=== PATIENT | male | born 1975 | race Hispanic/Latino ===

== ENCOUNTER 2017-09-24 15:55 | Emergency (ER) | payer SELFPAY ==
[2017-09-24] MEDS ORDERED: BUPIVACAINE 0.5% PF 10 ML VIAL ONE (17:54)
--- NOTE | 2017-09-24 18:38 | EDPHYS ---
Physician Documentation [facility] Name: Marcellus Branham Age: 42 yrs Sex: Male : 1975 Arrival Date: 09/24/2017 Time: 15:58 Bed 18 Private MD: None, None ED Physician Dank Stubbs HPI: 09/24 17:00 This 42 yrs old Male presents to ER via Ambulatory with complaints of Abscess. cp 17:00 The patient presents to the emergency department with hemorrhoid. cp 17:00 Onset: The symptoms/episode began/occurred 1 week(s) ago. cp 17:00 Associate signs and symptoms: Pertinent negatives: abdominal pain, constipation, cp diarrhea, fever, lower GI bleeding. 17:00 The patient has not experienced similar symptoms in the past. cp Historical: - Allergies: 16:04 No Known Allergies; hb - Immunization history:: Adult Immunizations up to date. - Social history:: Smoking status: Patient/guardian denies using tobacco. - Ebola Screening: : No symptoms or risks identified at this time. ROS: 17:10 Constitutional: Negative for body aches, chills, fever, poor PO intake. cp 17:10 Eyes: Negative for injury, pain, redness, and discharge. cp 17:10 Cardiovascular: Negative for chest pain, edema, palpitations. 17:10 Respiratory: Negative for cough, shortness of breath, wheezing. 17:10 Abdomen/GI: Negative for abdominal pain, nausea, vomiting, and diarrhea, constipation, black/tarry stool, rectal bleeding. 17:10 : Positive for hemorrhoid, Negative for urinary symptoms, flank pain. 17:10 Neuro: Negative for altered mental status, headache, weakness. 17:10 All other systems are negative. Exam: 17:18 Constitutional: The patient appears in no acute distress, alert, awake, comfortable, cp non-toxic, well developed, well nourished. 17:18 Head/Face: Normocephalic, atraumatic. cp 17:18 Eyes: Periorbital structures: appear normal, Conjunctiva: normal, no exudate, no cp injection, Sclera: no appreciated abnormality, Lids and lashes: appear normal, bilaterally. 17:18 ENT: External ear(s): are unremarkable, Nose: is normal, Mouth: is normal, Posterior pharynx: is normal, airway is patent, no erythema, no exudate. 17:18 Chest/axilla: Inspection: normal, Palpation: is normal, no crepitus, no tenderness. 17:18 Cardiovascular: Rate: tachycardic, Rhythm: regular. 17:18 Respiratory: the patient does not display signs of respiratory distress, Respirations: normal, no use of accessory muscles, no retractions, no splinting, no tachypnea, labored breathing, is not present, Breath sounds: are clear throughout. 17:18 Abdomen/GI: Inspection: abdomen appears normal, Bowel sounds: active, all quadrants, cp Palpation: abdomen is soft and non-tender, in all quadrants, rebound tenderness, is not appreciated, voluntary guarding, is not appreciated, involuntary guarding, is not appreciated. 17:18 Back: pain, is absent, ROM is normal. 17:18 : Rectal exam: Rectal tone: normal, Perineal sensation Normal hemorrhoid(s), external, thrombosed. 17:18 Skin: cellulitis, is not appreciated, no rash present. Vital Signs: 16:03 BP 152 / 108; Pulse 105; Resp 18; Temp 98.8; Pulse Ox 100% on R/A; Weight 88.45 kg; hb Height 5 ft. 10 in. (177.80 cm); Pain 3/10; 18:12 BP 144 / 95; Pulse 80; Resp 18; Pulse Ox 99% on R/A; Pain 3/10; em 19:04 BP 138 / 92; Pulse 81; Resp 16; Pulse Ox 98% on R/A; em 16:03 Body Mass Index 27.98 (88.45 kg, 177.80 cm) hb Procedures: 18:30 I \T\ D: Incision and drainage was performed for an abscess of the right external cp hemorrhoid Prepped with Betadine, Anesthetized with 3 ccs of 50/50 mixture of 1% lidocaine with epi and 0.5% marcaine. Incised with #11 blade. Drained bloody fluid. Packed with iodoform gauze, Dressing: sterile 4x4 gauze, the patient tolerated the procedure well. MDM: 16:08 Patient medically screened. cp 17:30 Differential diagnosis: hemorrhoids, fissure, abscess, pilonidal cyst. cp 18:35 Data reviewed: vital signs, nurses notes, and as a result, I will discharge patient. cp 18:35 Counseling: I had a detailed discussion with the patient and/or guardian regarding: the cp historical points, exam findings, and any diagnostic results supporting the discharge/admit diagnosis, the need for outpatient follow up, a general surgeon, to return to the emergency department if symptoms worsen or persist or if there are any questions or concerns that arise at home. 18:35 Response to treatment: the patient's symptoms have markedly improved after treatment, cp and as a result, I will discharge patient. 09/24 17:36 Order name: I\T\D Setup; Complete Time: 17:47 cp Administered Medications: No medications were administered Disposition: 09/25 09:06 Co-signature as Attending Physician, Dank Stubbs MD I agree with the assessment and [facility] plan of care. Disposition: 09/24/17 18:37 Discharged to Home. Impression: Hemorrhoids and perianal venous thrombosis. - Condition is Stable. - Discharge Instructions: Hemorrhoids, Sitz Bath. - Prescriptions for Colace 100 mg Oral Tablet - take 1 tablet by ORAL route every 12 hours; 14 tablet. Tramadol 50 mg Oral Tablet - take 1 tablet by ORAL route every 8 hours as needed; 12 tablet. - Medication Reconciliation Form, Thank You Letter, Antibiotic Education, Prescription Opioid Use form. - Follow up: Aj Yang MD; When: 1 - 2 days; Reason: Recheck today's complaints. - Problem is new. - Symptoms have improved. Signatures: Dank Stubbs MD MD cha Munoz, Edgar, SOLUTION DEVELOPER SOLUTION DEVELOPER em Dank James PA PA cp Baxter, Heather, DICK RN Corrections: (The following items were deleted from the chart) 09/24 19:05 18:37 09/24/2017 18:37 Discharged to Home. Impression: Hemorrhoids and perianal venous em thrombosis. Condition is Stable. Forms are Medication Reconciliation Form, Thank You Letter, Antibiotic Education, Prescription Opioid Use. Follow up: Aj Yang; When: 1 - 2 days; Reason: Recheck today's complaints. Problem is new. Symptoms have improved. cp
--- NOTE | 2017-09-24 18:38 | ER ---
Nurse's Notes [facility] Name: Marcellus Branham Age: 42 yrs Sex: Male : 1975 Arrival Date: 09/24/2017 Time: 15:58 Bed 18 Private MD: None, None Diagnosis: Hemorrhoids and perianal venous thrombosis Presentation: 09/24 16:02 Presenting complaint: Patient states: Painful abscess on buttock x 2 weeks. Transition hb of care: patient was not received from another setting of care. Onset of symptoms is unknown. Risk Assessment: Do you want to hurt yourself or someone else? Patient reports no desire to harm self or others. Initial Sepsis Screen: Does the patient meet any 2 criteria? No. Patient's initial sepsis screen is negative. Does the patient have a suspected source of infection? No. Patient's initial sepsis screen is negative. Care prior to arrival: None. 16:02 Method Of Arrival: Ambulatory hb 16:02 Acuity: CAROLYN 3 hb Historical: - Allergies: 16:04 No Known Allergies; hb - Immunization history:: Adult Immunizations up to date. - Social history:: Smoking status: Patient/guardian denies using tobacco. - Ebola Screening: : No symptoms or risks identified at this time. Screenin:02 Abuse screen: Denies threats or abuse. Nutritional screening: No deficits noted. em Tuberculosis screening: No symptoms or risk factors identified. Fall Risk None identified. Assessment: 16:20 General: Appears in no apparent distress. comfortable, Behavior is calm, cooperative, em Reports abscess near rectum for 2 weeks, hurts when wiping. Pain: Complains of pain in rectum. Neuro: Level of Consciousness is awake, alert, obeys commands, Oriented to person, place, time, situation. Cardiovascular: Capillary refill < 3 seconds Patient's skin is warm and dry. Respiratory: Airway is patent Respiratory effort is even, unlabored, Respiratory pattern is regular, symmetrical. Derm: Skin is intact, Skin is pink, warm \T\ dry. Musculoskeletal: Range of motion: intact in all extremities. 16:20 General: Denies fever. GI: Patient currently denies bloody stool, nausea, rectal em bleeding, tolerance of food. 17:22 Reassessment: Patient appears in no apparent distress at this time. Patient and/or em family updated on plan of care and expected duration. Pain level reassessed. Patient is alert, oriented x 3, equal unlabored respirations, skin warm/dry/pink. awaiting for provider to I\T\D. 17:45 Reassessment: I agree with above assessment by Sonny Mae LVN. iw 18:30 Reassessment: Patient appears in no apparent distress at this time. Patient and/or em family updated on plan of care and expected duration. Pain level reassessed. Patient is alert, oriented x 3, equal unlabored respirations, skin warm/dry/pink. Vital Signs: 16:03 BP 152 / 108; Pulse 105; Resp 18; Temp 98.8; Pulse Ox 100% on R/A; Weight 88.45 kg; hb Height 5 ft. 10 in. (177.80 cm); Pain 3/10; 18:12 BP 144 / 95; Pulse 80; Resp 18; Pulse Ox 99% on R/A; Pain 3/10; em 19:04 BP 138 / 92; Pulse 81; Resp 16; Pulse Ox 98% on R/A; em 16:03 Body Mass Index 27.98 (88.45 kg, 177.80 cm) hb ED Course: 15:58 Patient arrived in ED. mr 15:58 None, None is Private Physician. mr 16:03 Triage completed. hb 16:04 Arm band placed on left wrist. 16:05 Dank James PA is PHCP. cp 16:05 Dank Stubbs MD is Attending Physician. cp 16:05 Sonny Mae LVN is Primary Nurse. em 18:02 Patient has correct armband on for positive identification. Bed in low position. Call em light in reach. Adult w/ patient. 18:36 Aj Yang MD is Referral Physician. cp 19:00 Assist provider with I \T\ D: of an abscess on perianal Set up I\T\D tray. Performed by em Dank HUGGINS Wound packed. 4X4s, Dressing with 4X4s, tape Patient tolerated well. Patient did not have IV access during this emergency room visit. Administered Medications: No medications were administered Outcome: 18:37 Discharge ordered by . cp 19:03 Discharged to home ambulatory. em 19:03 Condition: good 19:03 Discharge instructions given to patient, family, Instructed on discharge instructions, follow up and referral plans. no drinking with medication, medication usage, Demonstrated understanding of instructions, follow-up care, medications, Prescriptions given X 2. 19:05 Patient left the ED. em Signatures: Hortencia Aggarwal, Sonny, CARGO VESSEL STEWARDESS CARGO VESSEL STEWARDESS em Karely North, RN RN Dank Wong PA PA cp Baxter, Heather, DICK RN hb
== END 2017-09-24 19:05 | disposition home or self-care (01) ==
LOC: ER 15:55
DX: K64.5 Perianal venous thrombosis (principal)
CPT/HCPCS: 99283